=== PATIENT | female | born 1985 | race Caucasian/White ===

== ENCOUNTER → 2017-01-16 | Outpatient (CLI) | payer MEDICAID ==
--- NOTE | 2017-01-17 14:41 | MR ---
EXAM DATE: 01/16/17 PATIENT'S AGE: 31 Patient: ERNESTO LEVI Facility: [place], [place] Site . Site : 1985 Study: MRI Spine Cervical [id number] 7:05:12 PM Ordering Physician: Yifan Lance Final Report: Indication: Neck pain. Comparison: None. Technique: Sagittal T1, T2 and STIR sequences. Axial T2 gradient sequences. Findings: Straightening of the normal cervical lordosis which may be due to muscle spasm or patient positioning. Otherwise, normal vertebral body facet alignment. No fractures. No vertebral body loss of height. No spondylosis. No ligamentous injury. Normal marrow signal. Normal cord signal. Visualized brainstem and cerebellum appear normal. C2-3: No spinal canal or neural foraminal narrowing. C3-4: No spinal canal or neural foraminal narrowing. C4-5: No spinal canal or neural foraminal narrowing. C5-6: Posterior disk bulge or disk osteophyte complex. Effacement of the ventral thecal sac and mild narrowing of the spinal canal. No neural foraminal narrowing. C6-7: Disc degeneration with posterior disc bulge or disk osteophyte complex. No narrowing of spinal canal. No neural foraminal narrowing. C7-T1: No spinal canal or neural foraminal narrowing. No spinal canal or neural foraminal narrowing in the visualized upper thoracic spine. Impression: 1. Straightening of the normal cervical lordosis. Otherwise, normal alignment. No fractures. No spondylosis. 2. Normal cord signal. 3. At C5-6, mild narrowing of the spinal canal 4. At C6-7, disk degeneration with posterior disc bulging disk osteophyte complex. Otherwise, no spinal canal or neural foramina narrowing 5. No spinal canal or neural foraminal narrowing at the remaining levels Dictated by Abdullahi Villarreal MD @ Jan 17 2017 9:08AM (Electronic Signature) Report Signed by Proxy and Original Signed Document filed in the Medical Record. CASSIE
== END ==
LOC: MW.MRI 17:16
PROVIDERS: ATTEND Nurse Practitioner Adult Health
DX: M54.2 Cervicalgia (principal); Q76.49 Other congenital malformations of spine, not associated with scoliosis; M50.223 Other cervical disc displacement at C6-C7 level; M50.323 Other cervical disc degeneration at C6-C7 level
CPT/HCPCS: 72141; 72141-26

== ENCOUNTER 2017-05-13 08:10 | Emergency (ER) | payer MEDICAID ==
--- NOTE | 2017-05-13 08:20 | EDM.PDOC ---
ED HPI GENERAL MEDICAL PROBLEM - General Chief Complaint: Chest Pain Stated Complaint: DIFFICULTY BREATHING Time Seen by Provider: 05/13/17 08:16 - History of Present Illness INITIAL COMMENTS - FREE TEXT/NARRATIVE: HISTORY AND PHYSICAL: History of present illness: Patient 32-year-old female history of alcohol abuse and reflux disease who presents with concern of chest pain has been off and on for some time it's described as sharp there is no clear associated symptoms she was scheduled appointment with her private medical doctor for this problem but opted due to his persistence to present to the ED patient denies drugs Review of systems: As per history of present illness and below otherwise all systems reviewed and negative. Past medical history: As per history of present illness and as reviewed below otherwise noncontributory. Surgical history: As per history of present illness and as reviewed below otherwise noncontributory. Social history: No reported history of drug or alcohol abuse. Family history: As per history of present illness and as reviewed below otherwise noncontributory. Physical exam: HEENT: Atraumatic, normocephalic, pupils reactive, negative for conjunctival pallor or scleral icterus, mucous membranes moist, throat clear, neck supple, nontender, trachea midline. Lungs: Clear to auscultation, breath sounds equal bilaterally, chest nontender. Heart: S1S2, regular, negative for clicks, rubs, or JVD. Abdomen: Soft, nondistended, nontender. Negative for masses or hepatosplenomegaly. Negative for costovertebral tenderness. Pelvis: Stable nontender. Genitourinary: Deferred. Rectal: Deferred. Extremities: Atraumatic, negative for cords or calf pain. Neurovascular unremarkable. Neuro: Awake, alert, oriented anxious, Cranial nerves II through XII unremarkable. Cerebellum unremarkable. Motor and sensory unremarkable throughout. Exam nonfocal. Diagnostics: CBC CMP PT/INR troponin d-dimer chest x-ray EKG Therapeutics: IV O2 monitor Impression: #1 atypical chest pain #2 history Milly Definitive disposition and diagnosis as appropriate pending reevaluation and review of above. - Related Data Allergies Allergy/AdvReac Type Severity Reaction Status Date / Time bupropion HCl Allergy Seizure Verified 05/13/17 08:14 [From Wellbutrin] Home Meds: Home Meds Etonogestrel [Nexplanon] 68 mg SQ ONETIME 12/12/16 [History] FLUoxetine [PROzac] 40 mg PO DAILY 05/13/17 [History] Past Medical History - Past Health History Medical/Surgical History: Denies Medical/Surgical History Respiratory History: Reports: Asthma Gastrointestinal History: Reports: GERD Musculoskeletal History: Reports: Arthritis, Other (See Below) Other Musculoskeletal History: carpal tunnel, scoliosis, "blown disk in back" Psychiatric History: Reports: Anxiety - Infectious Disease History Infectious Disease History: Reports: MRSA - Past Surgical History Dermatological Surgical History: Reports: Other (See Below) Social & Family History - Family History Family Medical History: Noncontributory - Tobacco Use Smoking Status *Q: Current Every Day Smoker Years of Tobacco use: 17 Packs/Tins Daily: 1 Used Tobacco, but Quit: No Second Hand Smoke Exposure: Yes - Caffeine Use Caffeine Use: Reports: Soda - Alcohol Use Days Per Week of Alcohol Use: 2 Number of Drinks Per Day: 2 Total Drinks Per Week: 4 - Recreational Drug Use Recreational Drug Use: No Drug Use in Last 12 Months: Yes Recreational Drug Type: Reports: Methamphetamine ED ROS GENERAL - Review of Systems Review Of Systems: ROS reveals no pertinent complaints other than HPI. ED EXAM, GENERAL - Physical Exam Exam: See Below (See dictation) Course - Vital Signs Last Recorded V/S: Last Vital Signs Temp 36.1 C 05/13/17 08:17 Pulse 87 05/13/17 08:17 Resp 20 05/13/17 08:17 BP 118/77 05/13/17 08:17 Pulse Ox 98 05/13/17 08:17 - Orders/Labs/Meds Orders: Active Orders 24 hr Category Date Time Status Cardiac Monitoring [RC] . DIRECTED Care 05/13/17 08:14 Active EKG Documentation Completion [RC] STAT Care 05/13/17 08:14 Active Chest 1V Frontal [CR] Stat Exams 05/13/17 08:15 Ordered CBC WITH AUTO DIFF [HEME] Stat Lab 05/13/17 08:15 Received COMPREHENSIVE METABOLIC PN,CMP [CHEM] Stat Lab 05/13/17 08:15 Received D-DIMER QUANTITATIVE [COAG] Stat Lab 05/13/17 08:15 Received INR,PT,PROTHROMBIN TIME [COAG] Stat Lab 05/13/17 08:15 Received TROPONIN I [CHEM] Stat Lab 05/13/17 08:15 Received Departure - Departure Time of Disposition: 08:30 Disposition: Home, Self-Care 01 Condition: Good Clinical Impression: Atypical chest pain - Discharge Information Forms: ED Department Discharge Additional Instructions: The following information is given to patients seen in the emergency department who are being discharged to home. This information is to outline your options for follow-up care. We provide all patients seen in our emergency department with a follow-up referral. The need for follow-up, as well as the timing and circumstances, are variable depending upon the specifics of your emergency department visit. If you don't have a primary care physician on staff, we will provide you with a referral. We always advise you to contact your personal physician following an emergency department visit to inform them of the circumstance of the visit and for follow-up with them and/or the need for any referrals to a consulting specialist. The emergency department will also refer you to a specialist when appropriate. This referral assures that you have the opportunity for followup care with a specialist. All of these measure are taken in an effort to provide you with optimal care, which includes your followup. Under all circumstances we always encourage you to contact your private physician who remains a resource for coordinating your care. When calling for followup care, please make the office aware that this follow-up is from your recent emergency room visit. If for any reason you are refused follow-up, please contact the [facility] emergency department at and asked to speak to the emergency department charge nurse. Follow-up primary medical doctor 1-2 days return as needed as discussed continue current medications - My Orders Last 24 Hours: My Active Orders 05/13/17 08:14 Cardiac Monitoring [RC] . DIRECTED EKG Documentation Completion [RC] STAT 05/13/17 08:15 Chest 1V Frontal [CR] Stat CBC WITH AUTO DIFF [HEME] Stat COMPREHENSIVE METABOLIC PN,CMP [CHEM] Stat D-DIMER QUANTITATIVE [COAG] Stat INR,PT,PROTHROMBIN TIME [COAG] Stat TROPONIN I [CHEM] Stat - Assessment/Plan Last 24 Hours: My Active Orders 05/13/17 08:14 Cardiac Monitoring [RC] . DIRECTED EKG Documentation Completion [RC] STAT 05/13/17 08:15 Chest 1V Frontal [CR] Stat CBC WITH AUTO DIFF [HEME] Stat COMPREHENSIVE METABOLIC PN,CMP [CHEM] Stat D-DIMER QUANTITATIVE [COAG] Stat INR,PT,PROTHROMBIN TIME [COAG] Stat TROPONIN I [CHEM] Stat
[2017-05-13 08:51] LABS: CHLORIDE,CL 109 mmol/L (98-110); SODIUM,NA 139 mmol/L (136-146)
[2017-05-13 09:23] VITALS: BP 100/67
--- NOTE | 2017-05-13 18:25 | CR ---
EXAM DATE: 05/13/17 PATIENT'S AGE: 32 Patient: ERNESTO LEVI Facility: [place], [place] Site . Site : 1985 Study: XRay Chest [id number] 8:35:57 AM Ordering Physician: Doctor Bowser Final Report: INDICATION: Chest pain. TECHNIQUE: Portable AP image of the chest. COMPARISON: 10/04/2016. FINDINGS: Lungs clear. No pleural effusion or pneumothorax. Heart size and pulmonary vasculature within normal limits. No obvious rib fracture or other significant osseous abnormality. IMPRESSION: Negative chest. Dictated by Qasim Nobles MD @ May 13 2017 8:37AM (Electronic Signature) Report Signed by Proxy. CASSIE
== END 2017-05-13 09:17 | disposition home or self-care (01) ==
LOC: MW.ED 08:10
DX: R07.89 Other chest pain (principal); J45.909 Unspecified asthma, uncomplicated; K21.9 Gastro-esophageal reflux disease without esophagitis; F17.210 Nicotine dependence, cigarettes, uncomplicated; Z79.899 Other long term (current) drug therapy
CPT/HCPCS: 36415; 71010; 71010-26; 80053; 84484; 85025; 85379; 85610; 93005; 99282; 99285-25

== ENCOUNTER 2017-10-20 11:09 | Emergency (ER) | payer MEDICAID ==
[2017-10-20 11:25] VITALS: BP 118/64
--- NOTE | 2017-10-20 12:43 | EDM.PDOC ---
ED HPI GENERAL MEDICAL PROBLEM - General Chief Complaint: Respiratory Problem Stated Complaint: BAD COUGH Time Seen by Provider: 10/20/17 11:20 Source of Information: Reports: Patient History Limitations: Reports: No Limitations - History of Present Illness INITIAL COMMENTS - FREE TEXT/NARRATIVE: History of present illness: []Patient's had a cough and runny nose for 2 days. No fevers or chills nausea vomiting or diarrhea. She has asthma and cannot find her inhaler. She does have a prescription for at the pharmacy however. Review of systems: As per history of present illness and below otherwise all systems reviewed and negative. Past medical history: As per history of present illness and as reviewed below otherwise noncontributory. Surgical history: As per history of present illness and as reviewed below otherwise noncontributory. Social history: No reported history of drug or alcohol abuse. Family history: As per history of present illness and as reviewed below otherwise noncontributory. Physical exam: General: Well developed, well nourished in NAD HEENT: Atraumatic, normocephalic, pupils reactive, negative for conjunctival pallor or scleral icterus, mucous membranes moist, throat clear, neck supple, nontender, trachea midline. No sinus tenderness to palpation positive nasal congestion Lungs: Clear to auscultation, breath sounds equal bilaterally, chest nontender. No wheezing Heart: S1S2, regular, negative for clicks, rubs, or JVD. Abdomen: Soft, nondistended, nontender. Negative for masses or hepatosplenomegaly. Negative for costovertebral tenderness. Pelvis: Stable nontender. Genitourinary: Deferred. Rectal: Deferred. Extremities: Atraumatic, negative for cords or calf pain. Neurovascular unremarkable. Neuro: Awake, alert, oriented. Cranial nerves II through XII unremarkable. Cerebellum unremarkable. Motor and sensory unremarkable throughout. Exam nonfocal. Diagnostics: [] Therapeutics: [] Impression: []Viral syndrome Plan: []Tylenol Motrin [id number] meds for symptomatic relief usually inhaler as directed for shortness of breath and wheezing return if symptoms worsen or change follow-up PMD as needed Definitive disposition and diagnosis as appropriate pending reevaluation and review of above. upon coughing Pain Score (Numeric/FACES): 3 - Related Data Allergies Allergy/AdvReac Type Severity Reaction Status Date / Time bupropion HCl Allergy Seizure Verified 10/20/17 11:21 [From Wellbutrin] Home Meds: Home Meds Citalopram Hydrobromide [Celexa] 10/20/17 [History] Nicotine [Nicotine Patch] 1 patch TD DAILY 10/20/17 [History] Past Medical History - Past Health History Medical/Surgical History: Denies Medical/Surgical History Cardiovascular History: Reports: None Respiratory History: Reports: Asthma Gastrointestinal History: Reports: GERD Musculoskeletal History: Reports: Arthritis, Other (See Below) Other Musculoskeletal History: carpal tunnel, scoliosis, "blown disk in back" Psychiatric History: Reports: Anxiety - Infectious Disease History Infectious Disease History: Reports: Chicken Pox, MRSA - Past Surgical History Other HEENT Surgeries/Procedures: [place] teeth Dermatological Surgical History: Reports: Other (See Below) Social & Family History - Family History Family Medical History: Noncontributory - Tobacco Use Smoking Status *Q: Current Every Day Smoker Years of Tobacco use: 18 Packs/Tins Daily: 0.5 Used Tobacco, but Quit: No Second Hand Smoke Exposure: Yes - Caffeine Use Caffeine Use: Reports: Coffee - Alcohol Use Days Per Week of Alcohol Use: 2 Number of Drinks Per Day: 2 Total Drinks Per Week: 4 - Recreational Drug Use Recreational Drug Use: No Drug Use in Last 12 Months: Yes Recreational Drug Type: Reports: Methamphetamine ED ROS GENERAL - Review of Systems Review Of Systems: See Below (See history of present illness) ED EXAM, GENERAL - Physical Exam Exam: See Below (See history of present illness) Course - Vital Signs Last Recorded V/S: Last Vital Signs Temp 97.3 F 10/20/17 11:23 Pulse 98 10/20/17 11:23 Resp 18 10/20/17 11:23 BP 118/64 10/20/17 11:23 Pulse Ox 98 10/20/17 11:23 Departure - Departure Time of Disposition: 12:30 Disposition: Home, Self-Care 01 Condition: Good Clinical Impression: Viral syndrome - Discharge Information Referrals: PCP,None [Primary Care Provider] - Additional Instructions: The following information is given to patients seen in the emergency department who are being discharged to home. This information is to outline your options for follow-up care. We provide all patients seen in our emergency department with a follow-up referral. The need for follow-up, as well as the timing and circumstances, are variable depending upon the specifics of your emergency department visit. If you don't have a primary care physician on staff, we will provide you with a referral. We always advise you to contact your personal physician following an emergency department visit to inform them of the circumstance of the visit and for follow-up with them and/or the need for any referrals to a consulting specialist. The emergency department will also refer you to a specialist when appropriate. This referral assures that you have the opportunity for follow-up care with a specialist. All of these measure are taken in an effort to provide you with optimal care, which includes your follow-up. Under all circumstances we always encourage you to contact your private physician who remains a resource for coordinating your care. When calling for follow-up care, please make the office aware that this follow-up is from your recent emergency room visit. If for any reason you are refused follow-up, please contact the [facility] Emergency Department at and asked to speak to the emergency department charge nurse. Ibuprofen Tylenol and [id number] cold medicines for symptomatic relief. Follow-up with primary care as needed [facility] [address] [place] [id number]
== END 2017-10-20 12:38 | disposition home or self-care (01) ==
LOC: MW.ED 11:09
DX: B34.9 Viral infection, unspecified (principal); F17.210 Nicotine dependence, cigarettes, uncomplicated; Z88.8 Allergy status to other drugs, medicaments and biological substances; Z79.899 Other long term (current) drug therapy
CPT/HCPCS: 99282; 99283

== ENCOUNTER 2018-08-10 11:09 | Emergency (ER) | payer MEDICAID ==
[2018-08-10] MEDS ORDERED: cefTRIAXone 250 MG in Lidocaine 1% 0.9 ML IM ONE (12:29)
[2018-08-10] MEDS ORDERED: Azithromycin 250 MG Tab PO SCH (12:30)
--- NOTE | 2018-08-10 12:36 | EDM.PDOC ---
ED HPI GENERAL MEDICAL PROBLEM - General Chief Complaint: Genitourinary Problem Stated Complaint: UTI Time Seen by Provider: 08/10/18 12:24 Source of Information: Reports: Patient History Limitations: Reports: No Limitations - History of Present Illness INITIAL COMMENTS - FREE TEXT/NARRATIVE: HISTORY AND PHYSICAL: History of present illness: Patient is a 33-year-old female here for possible UTI. She states she has burning with urination and urine looks darker. She denies any abdominal pain, back pain, fevers, chills, vomiting, diarrhea. She also is concerned about STIs as she states her boyfriend may have cheated on her. She states she had vaginal discharge last week but denies any today. Review of systems: As per history of present illness and below otherwise all systems reviewed and negative. Past medical history: As per history of present illness and as reviewed below otherwise noncontributory. Surgical history: As per history of present illness and as reviewed below otherwise noncontributory. Social history: No reported history of drug or alcohol abuse. Family history: As per history of present illness and as reviewed below otherwise noncontributory. Physical exam: General: Patient sitting comfortably in no acute distress and nontoxic appearing HEENT: Atraumatic, normocephalic, pupils reactive, negative for conjunctival pallor or scleral icterus, mucous membranes moist, throat clear, neck supple, nontender, trachea midline. No meningeal signs. Lungs: Clear to auscultation, breath sounds equal bilaterally, chest nontender. Heart: S1S2, regular, negative for clicks, rubs, or overt murmur. Abdomen: Mild suprapubic tenderness. Soft, nondistended. Negative for masses or hepatosplenomegaly. Negative for costovertebral tenderness. Pelvis: Stable nontender. Genitourinary: Deferred. Rectal: Deferred. Extremities: Atraumatic, negative for cords or calf pain. Neurovascular unremarkable. Neuro: Awake, alert, oriented. Cranial nerves II through XII unremarkable. Cerebellum unremarkable. Motor and sensory unremarkable throughout. Exam nonfocal. Notes: Diagnostics: UA, UC, gonorrhea/chlamydia Therapeutics: 250mg Ceftriaxone IM 1g Azithromycin Prescriptions: Macrobid 100mg Impression: UTI, STI exposure Plan: 1. Take antibiotic as directed 2. Follow up with primary care provider 3. Return to ED as needed as discussed Definitive disposition and diagnosis as appropriate pending reevaluation and review of above. - Related Data Allergies Allergy/AdvReac Type Severity Reaction Status Date / Time bupropion HCl Allergy Seizure Verified 08/10/18 12:43 [From Wellbutrin] Home Meds: Home Meds Etonogestrel [Nexplanon] 06/16/18 [History] Nitrofurantoin Monohyd/M-Cryst [Macrobid 100 mg Capsule] 100 mg PO BID 7 Days # 14 capsule 08/10/18 [Rx] Past Medical History - Past Health History Medical/Surgical History: Denies Medical/Surgical History Cardiovascular History: Reports: None Respiratory History: Reports: Asthma Gastrointestinal History: Reports: GERD Musculoskeletal History: Reports: Arthritis, Other (See Below) Other Musculoskeletal History: carpal tunnel, scoliosis, "blown disk in back" Psychiatric History: Reports: Anxiety - Infectious Disease History Infectious Disease History: Reports: Chicken Pox, MRSA - Past Surgical History Other HEENT Surgeries/Procedures: [place] teeth Dermatological Surgical History: Reports: Other (See Below) Social & Family History - Family History Family Medical History: Noncontributory - Caffeine Use Caffeine Use: Reports: Coffee ED ROS GENERAL - Review of Systems Review Of Systems: ROS reveals no pertinent complaints other than HPI. ED EXAM, GI/ABD - Physical Exam Exam: See Below (see dictation) Course - Vital Signs Last Recorded V/S: Last Vital Signs Temp 36.7 C 08/10/18 12:08 Pulse 69 08/10/18 12:08 Resp 16 08/10/18 12:08 BP 118/39 L 08/10/18 12:08 Pulse Ox 97 08/10/18 12:08 - Orders/Labs/Meds Orders: Active Orders 24 hr Category Date Time Status CHLAMYDIA AND GONORRHEA BY TMA Stat Lab 08/10/18 12:18 Received Azithromycin [Zithromax] Med 08/10/18 12:30 Active 1,000 mg PO Q24H Medication Orders Azithromycin (Zithromax) 1,000 mg PO Q24H BIJAL Labs: Laboratory Tests 08/10/18 Range/Units 11:15 Urine Color YELLOW Urine Appearance CLEAR Urine pH 6.5 (5.0-8.0) Ur Specific [place] 1.020 (1.001-1.035) Urine Protein NEGATIVE (NEGATIVE) mg/dL Urine Glucose (UA) NEGATIVE (NEGATIVE) mg/dL Urine Ketones NEGATIVE (NEGATIVE) mg/dL Urine Occult Blood MODERATE (NEGATIVE) Urine Nitrite NEGATIVE (NEGATIVE) Urine Bilirubin NEGATIVE (NEGATIVE) Urine Urobilinogen 0.2 (<2.0) EU/dL Ur Leukocyte Esterase SMALL (NEGATIVE) Urine RBC 8-10 (0-2/HPF) Urine WBC 25-30 (0-5/HPF) Ur Epithelial Cells FEW (NONE-FEW) Urine Bacteria 1+ H (NEGATIVE) Urine Mucus LIGHT (NONE-MOD) Meds: Medications Generic Name Dose Route Start Last Admin Trade Name Freq PRN Reason Stop Dose Admin Azithromycin 1,000 mg 08/10/18 12:30 Zithromax PO Q24H BIJAL Discontinued Medications Generic Name Dose Route Start Last Admin Trade Name Freq PRN Reason Stop Dose Admin Ceftriaxone Sodium 250 mg/ 0.9 mls @ 0.9 mls/sec 08/10/18 12:29 Lidocaine HCl IM 08/10/18 12:30 ONETIME ONE Departure - Departure Time of Disposition: 12:46 Disposition: Home, Self-Care 01 Condition: Good Clinical Impression: UTI (urinary tract infection), STD exposure - Discharge Information Prescriptions: Nitrofurantoin Monohyd/M-Cryst [Macrobid 100 mg Capsule] 100 mg PO BID 7 Days # 14 capsule Referrals: PCP,None [Primary Care Provider] - Forms: ED Department Discharge Additional Instructions: The following information is given to patients seen in the emergency department who are being discharged to home. This information is to outline your options for follow-up care. We provide all patients seen in our emergency department with a follow-up referral. The need for follow-up, as well as the timing and circumstances, are variable depending upon the specifics of your emergency department visit. If you don't have a primary care physician on staff, we will provide you with a referral. We always advise you to contact your personal physician following an emergency department visit to inform them of the circumstance of the visit and for follow-up with them and/or the need for any referrals to a consulting specialist. The emergency department will also refer you to a specialist when appropriate. This referral assures that you have the opportunity for follow-up care with a specialist. All of these measure are taken in an effort to provide you with optimal care, which includes your follow-up. Under all circumstances we always encourage you to contact your private physician who remains a resource for coordinating your care. When calling for follow-up care, please make the office aware that this follow-up is from your recent emergency room visit. If for any reason you are refused follow-up, please contact the [facility] Emergency Department at and asked to speak to the emergency department charge nurse. [address] [id number] 1. Take antibiotic as directed 2. Follow up with primary care provider 3. Return to ED as needed as discussed - My Orders Last 24 Hours: My Active Orders 08/10/18 12:18 CHLAMYDIA AND GONORRHEA BY TMA Stat 08/10/18 12:30 Azithromycin [Zithromax] 1,000 mg PO Q24H - Assessment/Plan Last 24 Hours: My Active Orders 08/10/18 12:18 CHLAMYDIA AND GONORRHEA BY TMA Stat 08/10/18 12:30 Azithromycin [Zithromax] 1,000 mg PO Q24H
[2018-08-10 13:20] VITALS: BP 127/72
== END 2018-08-10 13:12 | disposition home or self-care (01) ==
LOC: MW.ED 11:09
DX: N39.0 Urinary tract infection, site not specified (principal); Z20.2 Contact with and (suspected) exposure to infections with a predominantly sexual mode of transmission; Z88.8 Allergy status to other drugs, medicaments and biological substances
CPT/HCPCS: 81001; 87491; 87591; 96372; 99283; A9270; J0696

== ENCOUNTER 2019-02-23 11:31 | Emergency (ER) | payer MEDICAID ==
[2019-02-23] MEDS ORDERED: Ketorolac 60 MG/2 ML SDV IM ONE (12:47)
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
--- NOTE | 2019-02-23 13:43 | CR ---
EXAMINATION: Sacrum and coccyx HISTORY: Pain COMPARISON: CT dated 10/04/2016 TECHNIQUE: AP and lateral views FINDINGS: There is no acute osseous abnormality, dislocation, or fracture. Bone mineralization and joint spaces are grossly preserved. There is hemisacralization of L5 on the left. SI joints are symmetric. The iliopectineal lines are intact. Sacrum and coccyx otherwise appear intact and unchanged from prior examinations. IMPRESSION: No acute osseous abnormality.
[2019-02-23 14:09] VITALS: BP 142/67
== END 2019-02-23 14:11 | disposition home or self-care (01) ==
LOC: MW.ED 11:31
DX: S39.92XA Unspecified injury of lower back, initial encounter (principal); S40.022A Contusion of left upper arm, initial encounter; F17.210 Nicotine dependence, cigarettes, uncomplicated; Z88.8 Allergy status to other drugs, medicaments and biological substances; Y04.8XXA Assault by other bodily force, initial encounter
CPT/HCPCS: 72220; 96372; 99283; J1885